=== PATIENT | female | born 1960 | race Caucasian/White ===

== ENCOUNTER 2019-07-17 09:13 | Emergency (ER) | payer OTHER ==
[~2019-07-17] VITALS: Ht 157.5 cm; Wt 54.4 kg
[2019-07-17] MEDS ORDERED: MEDROLPACK PO (10:30)
[2019-07-17] MEDS ORDERED: XYZAL5 MG PO (10:30)
== END 2019-07-17 10:38 | disposition home or self-care (01) ==
LOC: ER 09:13
DX: T78.49XA Other allergy, initial encounter (principal); X58.XXXA Exposure to other specified factors, initial encounter